=== PATIENT | female | born 1960 | race Caucasian/White ===

== ENCOUNTER 2017-06-17 09:37 | Emergency (ER) | payer OTHER, BC ==
[~2017-06-17] VITALS: Ht 162.6 cm; Wt 87.8 kg
[~2017-06-17 09:37] MED LIST: FLEXERIL5 MG PO; FLOVENT 11120 INHALA IH; LASIX10 MG PO; PROPRANOLOL HCL40 MG PO; ULTRAM50 MG PO
[2017-06-17 12:25] VITALS: BP 123/70
== END 2017-06-17 12:26 | disposition home or self-care (01) ==
LOC: EME 09:37
DX: S80.01XA Contusion of right knee, initial encounter (principal); S40.011A Contusion of right shoulder, initial encounter; W18.09XA Striking against other object with subsequent fall, initial encounter; Y99.0 Civilian activity done for income or pay; I10 Essential (primary) hypertension; M25.522 Pain in left elbow; E66.01 Morbid (severe) obesity due to excess calories; Z68.33 Body mass index [BMI] 33.0-33.9, adult
CPT/HCPCS: 73030; 73564; 99281; 99284